=== PATIENT | male | born 1970 | race Caucasian/White ===

== ENCOUNTER 2020-09-11 21:33 | Inpatient (IN) | payer BC, OTHER ==
[~2020-09-11] VITALS: Ht 170.2 cm; Wt 90.1 kg
[~2020-09-11 21:33] MED LIST: ATEN-169 PO; CYCL-1 PO; GABA-530 PO; HYDR12.522 PO; TRAM50TA2 PO; magnesium sulf 1 GM/2 ML ONE
--- NOTE | 2020-09-11 22:08 | NUR ---
Port xray at bedside.
[2020-09-11 22:11] LABS: BASOPHILS % (AUTO) 0.3 % (0-1); EOSINOPHILS % (AUTO) 0.1 % (0-6); HEMATOCRIT 44.4 % (42.0-52.0); HEMOGLOBIN 15.2 g/dl (14.0-17.9); LYMPHOCYTES # (AUTO) 0.4 X10'3 (1.1-4.8); LYMPHOCYTES % (AUTO) 9.4 % (21-51); MEAN CORPUSCULAR HEMOGLOBIN 31.2 PG (27.0-31.0); MEAN CORPUSCULAR HGB CONC 34.3 g/dL (33.0-36.5); MONOCYTES # (AUTO) 0.5 X10'3 (0-0.9); MONOCYTES % (AUTO) 11.2 % (2-12); NEUTROPHILS # (AUTO) 3.4 X10'3 (1.8-7.7); PLATELET COUNT 234 X10'3 (140-440); RED BLOOD COUNT 4.88 X10'6 (4.70-6.10); RED CELL DISTRIBUTION WIDTH 13.4 % (11.5-14.5); WHITE BLOOD COUNT 4.3 X10'3 (4.5-11.0)
[2020-09-11 22:11] LABS: ABG BASE EXCESS -2.5 mmol/L (-2.0-2.0); ABG HCO3 20.7 mmol/L (22.0-26.0); ABG OXYGEN SATURATION 93.1 % (94-97); ABG PCO2 (T) 31.7 mmHg (35.0-48.0); ABG PO2 (T) 64.9 mmHg (75.0-100.0); ALLEN'S TEST POSITIVE; FCOHb 1.8 % (0.0-3.9); FMetHb 0.1 % (0.0-1.5); FO2Hb 91.3 % (94-97); TOTAL HEMOGLOBIN 14.5 G/dl (14.0-18.0)
[2020-09-11] MEDS ORDERED: dexamethasone sod phosphate 10mg/ml inj IV STA (22:23)
[2020-09-11] MEDS ORDERED: HYDR-3972 PO (22:55)
[2020-09-11] MEDS ORDERED: ALB0.5UD PO (22:55)
[2020-09-11] MEDS ORDERED: CYCL-394 PO (22:58)
[2020-09-11] MEDS ORDERED: magnesium hydroxide 30ml (MOM) UD suspension PO PRN (23:00)
[2020-09-11] MEDS ORDERED: HYDROcodone/acetaminophen 5mg/325mg tablet PO PRN (23:00)
[2020-09-11] MEDS ORDERED: potassium Cl 20 mEq SR tablet PO PRN ×2 (23:00)
[2020-09-11] MEDS ORDERED: ondansetron/PF 4mg/2ml inj IV PRN (23:00)
[2020-09-11] MEDS ORDERED: acetaminophen 325mg tablet PO PRN (23:00)
[2020-09-11] MEDS ORDERED: mag hydrox/Alum hydrox/simeth 30ml oral suspension PO PRN (23:00)
[2020-09-11] MEDS ORDERED: potassium CL 10mEq/100ml bag 100 ML IV PRN ×2 (23:00)
[2020-09-11 23:10] LABS: ALBUMIN 2.9 G/DL (3.4-5.0); ANION GAP 9 (8-16); BLOOD UREA NITROGEN 12 MG/DL (7-18); BUN/CREATININE RATIO 12.2 (5.4-32.0); C-REACTIVE PROTEIN 20.77 MG/DL (0.0-0.5); CALCIUM 7.8 MG/DL (8.5-10.1); CHLORIDE 102 MMOL/L (99-107); CREATININE 0.98 MG/DL (0.60-1.10); FERRITIN 460 NG/ML (26-388); GLUCOSE 157 MG/DL (70-104); LACTATE DEHYDROGENASE 463 U/L (85-227); POTASSIUM 3.6 MMOL/L (3.5-5.1); SODIUM 139 MMOL/L (135-145); TOTAL CARBON DIOXIDE 28.5 MMOL/L (24-32); TROPONIN I 0.06 NG/ML (0.0-0.05); eGFR 81 ML/MIN
[2020-09-11 23:20] LABS: ABG BASE EXCESS -0.1 mmol/L (-2.0-2.0); ABG HCO3 23.6 mmol/L (22.0-26.0); ABG OXYGEN SATURATION 91.7 % (94-97); ABG PCO2 (T) 35.2 mmHg (35.0-48.0); ABG PO2 (T) 59.9 mmHg (75.0-100.0); ALLEN'S TEST POSITIVE; FCOHb 1.4 % (0.0-3.9); FO2Hb 90.4 % (94-97); PATIENT TEMPERATURE 36.9; RESPIRATORY RATE 12 b/min
[2020-09-11] MEDS ORDERED: aspirin 81mg tab.chew PO ONE (23:20)
[2020-09-11] MEDS ORDERED: REMDESIVIR 100MG inj. 200 MG in normal saline 100ml IV soln 100 ML IV ONE (23:20)
[2020-09-11 23:41] LABS: D-DIMER 1.45 MG/L FEU (0-0.50)
[2020-09-12] VITALS (8 sets, daily range): BP systolic 105–134; BP diastolic 58–87
[2020-09-12] MEDS: cyclobenzaprine 10mg tablet PO SCH ×3 (00:22→15:22)
[2020-09-12] MEDS: normal saline 1000ml 1,000 ML IV SCH (00:22)
--- NOTE | 2020-09-12 01:07 | NUR ---
Patient in room ED 7. I have received report from Pratima VO and had the opportunity to ask questions and assume patient care.
--- NOTE | 2020-09-12 01:07 | NUR ---
pagged resp and security for pt to be transfered to floor bed 8444
[2020-09-12] MEDS ORDERED: FLO0.4C PO (03:09)
[2020-09-12] MEDS ORDERED: AZIT250T2 PO (03:09)
[2020-09-12] MEDS ORDERED: ESCI10TA61 PO (03:09)
[2020-09-12 03:34] LABS: BASOPHILS % (AUTO) 0.2 % (0-1); EOSINOPHILS % (AUTO) 0 % (0-6); HEMATOCRIT 38.7 % (42.0-52.0); HEMOGLOBIN 13.4 g/dl (14.0-17.9); LYMPHOCYTES # (AUTO) 0.3 X10'3 (1.1-4.8); LYMPHOCYTES % (AUTO) 6.3 % (21-51); MEAN CORPUSCULAR HEMOGLOBIN 31.2 PG (27.0-31.0); MEAN CORPUSCULAR HGB CONC 34.5 g/dL (33.0-36.5); MEAN CORPUSCULAR VOLUME 90.4 FL (78-98); MONOCYTES # (AUTO) 0.3 X10'3 (0-0.9); MONOCYTES % (AUTO) 8.3 % (2-12); NEUTROPHILS # (AUTO) 3.4 X10'3 (1.8-7.7); NEUTROPHILS % (AUTO) 85.2 % (42-75); PLATELET COUNT 209 X10'3 (140-440); RED BLOOD COUNT 4.28 X10'6 (4.70-6.10); RED CELL DISTRIBUTION WIDTH 13.2 % (11.5-14.5)
[2020-09-12 03:44] LABS: ALANINE AMINOTRANSFERASE 18 U/L (12-78); ALBUMIN 2.8 G/DL (3.4-5.0); ALBUMIN/GLOBULIN RATIO 0.7 (1.1-1.5); ALKALINE PHOSPHATASE 49 IU/L (46-116); ANION GAP 8 (8-16); ASPARTATE AMINO TRANSFERASE 28 U/L (10-37); BILIRUBIN,TOTAL 0.7 MG/DL (0.1-1.0); BLOOD UREA NITROGEN 13 MG/DL (7-18); BUN/CREATININE RATIO 15.3 (5.4-32.0); CALCIUM 7.9 MG/DL (8.5-10.1); CHLORIDE 103 MMOL/L (99-107); CREATININE 0.85 MG/DL (0.60-1.10); GLUCOSE 172 MG/DL (70-104); SODIUM 138 MMOL/L (135-145); TOTAL PROTEIN 6.9 G/DL (6.4-8.2); eGFR > 90 ML/MIN
[2020-09-12] MEDS ORDERED: REMDESIVIR 100MG inj. 200 MG in normal saline 100ml IV soln 100 ML IV ONE (06:00)
--- NOTE | 2020-09-12 06:14 | NUR ---
Problems reprioritized. Patient report given, questions answered & plan of care reviewed with Maite RN and live RN.
--- NOTE | 2020-09-12 06:33 | NUR ---
Patient in room PCU 3008. I have received report from Taqueria VO and had the opportunity to ask questions and assume patient care.
[2020-09-12] MEDS: dexamethasone inj 6 MG in normal saline 100ml IV soln 100 ML IV SCH (07:57)
[2020-09-12] MEDS ORDERED: heparin, porcine 5000 units/ml vial SQ SCH (08:00)
[2020-09-12] MEDS: K and/or MAG REPLACEMENT MC SCH ×2 (08:00→20:00)
[2020-09-12] MEDS: HYDROcodone/acetaminophen 10/325mg tab PO PRN ×2 (08:14→17:08)
[2020-09-12] MEDS: atenolol 50mg tablet PO SCH (08:15)
--- NOTE | 2020-09-12 09:15 | NUR ---
Per Dr. Childs, he would like patient taken off bi-pap and put on hi-flow nasal cannula. Currently 99% on 55% FiO2. Will page RT.
--- NOTE | 2020-09-12 10:45 | NUR ---
Patient O2 sat 99% on 55% FiO2. Per RT, he would like to titrate oxygen requirements down and then place patient on hi-flow nasal cannula.
--- NOTE | 2020-09-12 11:13 | NUR ---
Patient on 45% FiO2. Saturating 98%.
[2020-09-12] MEDS: CefTRIAXone 2gm/D5W 50ml BAG 50 ML IV SCH (12:11)
[2020-09-12] MEDS: gabapentin 400mg capsule PO SCH ×2 (12:11→20:29)
--- NOTE | 2020-09-12 12:30 | NUR ---
Spoke with patient's spouse, Greta regarding having patients personal computer delivered to lobby. Will pickle processor from security if family able to arrange for delivery.
--- NOTE | 2020-09-12 13:09 | NUR ---
Patient on bi-pap FiO2 35%. Oxygen saturation 92%. Respirations 24. Offers no complaints.
--- NOTE | 2020-09-12 14:00 | NUR ---
Patient on 12L high flow oxygen. Sats 94%. Respirations 24. Will continue to monitor.
[2020-09-12] MEDS ORDERED: albuterol 2.5 MG/3 ML nebule NEB PRN (15:10)
[2020-09-12] MEDS: tamsulosin 0.4mg capsule PO SCH (17:04)
--- NOTE | 2020-09-12 18:23 | NUR ---
Patient in room PCU 3008. I have received report from Maite VO and had the opportunity to ask questions and assume patient care.
[2020-09-12] MEDS: enoxaparin 40mg/0.4ml syringe SUBCUT SCH (20:29)
[2020-09-12] MEDS ORDERED: gabapentin 400mg capsule PO SCH (21:00)
[2020-09-13] MEDS: cyclobenzaprine 10mg tablet PO SCH ×3 (00:05→15:36)
[2020-09-13] MEDS: HYDROcodone/acetaminophen 10/325mg tab PO PRN ×3 (00:05→13:56)
[2020-09-13 02:00] VITALS: BP 136/75
--- NOTE | 2020-09-13 06:14 | NUR ---
Problems reprioritized. Patient report given, questions answered & plan of care reviewed with Iris VO.
--- NOTE | 2020-09-13 06:49 | NUR ---
Patient in room PCU 3008. I have received report from Taqueria VO and had the opportunity to ask questions and assume patient care.
[2020-09-13 06:53] VITALS: BP 117/72
[2020-09-13 07:21] LABS: BASOPHILS % (AUTO) 0.1 % (0-1); EOSINOPHILS % (AUTO) 0 % (0-6); HEMOGLOBIN 12.5 g/dl (14.0-17.9); LYMPHOCYTES # (AUTO) 0.5 X10'3 (1.1-4.8); LYMPHOCYTES % (AUTO) 6.4 % (21-51); MEAN CORPUSCULAR HEMOGLOBIN 31.8 PG (27.0-31.0); MEAN CORPUSCULAR HGB CONC 34.8 g/dL (33.0-36.5); MEAN CORPUSCULAR VOLUME 91.4 FL (78-98); MEAN PLATELET VOLUME 8.2 FL (7.4-10.4); MONOCYTES # (AUTO) 0.7 X10'3 (0-0.9); NEUTROPHILS # (AUTO) 7.2 X10'3 (1.8-7.7); NEUTROPHILS % (AUTO) 85.5 % (42-75); PLATELET COUNT 257 X10'3 (140-440); RED BLOOD COUNT 3.94 X10'6 (4.70-6.10); RED CELL DISTRIBUTION WIDTH 12.9 % (11.5-14.5); WHITE BLOOD COUNT 8.4 X10'3 (4.5-11.0)
[2020-09-13 07:38] LABS: D-DIMER 6.53 MG/L FEU (0-0.50)
[2020-09-13] MEDS: dexamethasone inj 6 MG in normal saline 100ml IV soln 100 ML IV SCH (07:52)
[2020-09-13] MEDS: REMDESIVIR 100MG inj. 100 MG in normal saline 100ml IV soln 100 ML IV SCH (07:56)
[2020-09-13] MEDS: gabapentin 400mg capsule PO SCH ×2 (07:56→21:09)
[2020-09-13] MEDS: CefTRIAXone 2gm/D5W 50ml BAG 50 ML IV SCH (07:57)
[2020-09-13] MEDS: enoxaparin 40mg/0.4ml syringe SUBCUT SCH ×2 (07:57→21:10)
[2020-09-13] MEDS: ESCITALOPRAM OXALATE 5 MG TABLET PO SCH (07:58)
[2020-09-13] MEDS: atenolol 50mg tablet PO SCH (07:58)
[2020-09-13] MEDS: tamsulosin 0.4mg capsule PO SCH (07:59)
[2020-09-13] MEDS: K and/or MAG REPLACEMENT MC SCH ×2 (08:00→20:00)
[2020-09-13 08:01] LABS: ALANINE AMINOTRANSFERASE 19 U/L (12-78); ALBUMIN 2.4 G/DL (3.4-5.0); ALBUMIN/GLOBULIN RATIO 0.6 (1.1-1.5); ALKALINE PHOSPHATASE 56 IU/L (46-116); ANION GAP 10 (8-16); ASPARTATE AMINO TRANSFERASE 20 U/L (10-37); BILIRUBIN,TOTAL 0.5 MG/DL (0.1-1.0); BLOOD UREA NITROGEN 20 MG/DL (7-18); BUN/CREATININE RATIO 23.3 (5.4-32.0); C-REACTIVE PROTEIN 12.54 MG/DL (0.0-0.5); CALCIUM 7.8 MG/DL (8.5-10.1); CHLORIDE 107 MMOL/L (99-107); CREATININE 0.86 MG/DL (0.60-1.10); GLUCOSE 168 MG/DL (70-104); POTASSIUM 3.8 MMOL/L (3.5-5.1); SODIUM 144 MMOL/L (135-145); TOTAL CARBON DIOXIDE 27.5 MMOL/L (24-32); TOTAL PROTEIN 6.2 G/DL (6.4-8.2); eGFR > 90 ML/MIN
[2020-09-13 11:00] VITALS: BP 134/61
[2020-09-13 15:00] VITALS: BP 107/44
[2020-09-13] MEDS: morphine 2 MG/ML inj. syringe IV PRN (15:37)
--- NOTE | 2020-09-13 16:05 | NUR ---
New order from Dr Angelo for morphine IV 0.5 mg q8h PRN for pain.
--- NOTE | 2020-09-13 17:11 | NUR ---
Pt Rashad 3008 HR has been sinus kellie 45s-55s for the past hour or so, possibly due to the morphine? He is not symptomatic, will continue to monitor. Iris Muniz Belen
[2020-09-13 18:00] VITALS: BP 125/75
--- NOTE | 2020-09-13 18:10 | NUR ---
Patient in room PCU 3008. I have received report from Iris VO and had the opportunity to ask questions and assume patient care.
--- NOTE | 2020-09-13 18:11 | NUR ---
Problems reprioritized. Patient report given, questions answered & plan of care reviewed with TAVO Gonzalez. Patient stable at transfer of care.
--- NOTE | 2020-09-13 18:42 | NUR ---
Problems reprioritized. Patient report given, questions answered & plan of care reviewed with Taqueria VO.
--- NOTE | 2020-09-13 18:43 | NUR ---
Patient in room PCU 3008. I have received report from Carlos VO and had the opportunity to ask questions and assume patient care.
[2020-09-13] MEDS: lactobacillus rhamnosus 10,000 MMU CELLS/CAPSULE PO SCH (21:10)
[2020-09-13 22:00] VITALS: BP 103/59
[2020-09-13] MEDS: normal saline 1000ml 1,000 ML IV SCH (23:38)
[2020-09-14] MEDS: cyclobenzaprine 10mg tablet PO SCH ×3 (00:14→16:27)
[2020-09-14] MEDS: HYDROcodone/acetaminophen 10/325mg tab PO PRN ×3 (00:14→19:48)
[2020-09-14 02:00] VITALS: BP 123/70
[2020-09-14 05:42] VITALS: BP 128/78
[2020-09-14 06:02] LABS: BASOPHILS % (AUTO) 0 % (0-1); EOSINOPHILS % (AUTO) 0 % (0-6); HEMATOCRIT 36.6 % (42.0-52.0); HEMOGLOBIN 12.6 g/dl (14.0-17.9); LYMPHOCYTES # (AUTO) 0.7 X10'3 (1.1-4.8); MEAN CORPUSCULAR HEMOGLOBIN 31.3 PG (27.0-31.0); MEAN CORPUSCULAR HGB CONC 34.5 g/dL (33.0-36.5); MEAN CORPUSCULAR VOLUME 90.8 FL (78-98); MEAN PLATELET VOLUME 8.2 FL (7.4-10.4); MONOCYTES % (AUTO) 9.7 % (2-12); NEUTROPHILS # (AUTO) 8.4 X10'3 (1.8-7.7); NEUTROPHILS % (AUTO) 83.3 % (42-75); PLATELET COUNT 260 X10'3 (140-440); RED BLOOD COUNT 4.03 X10'6 (4.70-6.10); RED CELL DISTRIBUTION WIDTH 12.9 % (11.5-14.5); WHITE BLOOD COUNT 10.1 X10'3 (4.5-11.0)
--- NOTE | 2020-09-14 06:10 | NUR ---
Problems reprioritized. Patient report given, questions answered & plan of care reviewed with Iris VO.
--- NOTE | 2020-09-14 06:39 | NUR ---
Patient in room PCU 3008. I have received report from Taqueria VO and had the opportunity to ask questions and assume patient care.
[2020-09-14 06:49] LABS: ALANINE AMINOTRANSFERASE 20 U/L (12-78); ALBUMIN 2.3 G/DL (3.4-5.0); ALBUMIN/GLOBULIN RATIO 0.6 (1.1-1.5); ALKALINE PHOSPHATASE 70 IU/L (46-116); ANION GAP 8 (8-16); ASPARTATE AMINO TRANSFERASE 18 U/L (10-37); BILIRUBIN,TOTAL 0.5 MG/DL (0.1-1.0); BLOOD UREA NITROGEN 23 MG/DL (7-18); BUN/CREATININE RATIO 28.8 (5.4-32.0); C-REACTIVE PROTEIN 5.21 MG/DL (0.0-0.5); CALCIUM 8.1 MG/DL (8.5-10.1); CHLORIDE 109 MMOL/L (99-107); GLUCOSE 142 MG/DL (70-104); LACTATE DEHYDROGENASE 485 U/L (85-227); POTASSIUM 3.9 MMOL/L (3.5-5.1); SODIUM 145 MMOL/L (135-145); TOTAL CARBON DIOXIDE 27.8 MMOL/L (24-32); TOTAL PROTEIN 5.9 G/DL (6.4-8.2); eGFR > 90 ML/MIN
[2020-09-14] MEDS: gabapentin 400mg capsule PO SCH ×2 (07:57→19:49)
[2020-09-14] MEDS: lactobacillus rhamnosus 10,000 MMU CELLS/CAPSULE PO SCH ×2 (07:57→19:49)
[2020-09-14] MEDS: dexamethasone inj 6 MG in normal saline 100ml IV soln 100 ML IV SCH (07:57)
[2020-09-14] MEDS: ESCITALOPRAM OXALATE 5 MG TABLET PO SCH (07:57)
[2020-09-14] MEDS: tamsulosin 0.4mg capsule PO SCH (07:57)
[2020-09-14] MEDS: atenolol 50mg tablet PO SCH (07:57)
[2020-09-14] MEDS: REMDESIVIR 100MG inj. 100 MG in normal saline 100ml IV soln 100 ML IV SCH (07:58)
[2020-09-14] MEDS: CefTRIAXone 2gm/D5W 50ml BAG 50 ML IV SCH (07:58)
[2020-09-14] MEDS: morphine 2 MG/ML inj. syringe IV PRN ×2 (08:13→16:28)
[2020-09-14] MEDS: enoxaparin 100mg/ml syringe SUBCUT SCH ×2 (08:14→19:50)
[2020-09-14] MEDS: K and/or MAG REPLACEMENT MC SCH (08:30)
[2020-09-14] MEDS ORDERED: iohexol 350MG/ML 100ml bottle IV ONE (10:18)
[2020-09-14 11:00] VITALS: BP 122/95
--- NOTE | 2020-09-14 11:30 | NUR ---
PAGER ID: [phone] MESSAGE: [phone] Kelly - Patient has a PE in the right lung per CT. Please advise. Iris [facility] [id number]
[2020-09-14 15:00] VITALS: BP_SYST 122; BP_SYST 143; BP_DIAS 64; BP_DIAS 83
--- NOTE | 2020-09-14 18:07 | NUR ---
Problems reprioritized. Patient report given, questions answered & plan of care reviewed with Amadeo RN.
--- NOTE | 2020-09-14 18:32 | NUR ---
Patient in room PCU 3008. I have received report from JAYCE VO and had the opportunity to ask questions and assume patient care.
[2020-09-14 19:00] VITALS: BP 147/81
[2020-09-14 20:00] VITALS: BP 138/69
[2020-09-15] VITALS (8 sets, daily range): BP systolic 127–155; BP diastolic 55–83
[2020-09-15] MEDS: cyclobenzaprine 10mg tablet PO SCH ×3 (00:26→15:21)
[2020-09-15] MEDS: K and/or MAG REPLACEMENT MC SCH ×3 (01:11→20:00)
[2020-09-15 03:04] LABS: BASOPHILS % (AUTO) 0.3 % (0-1); EOSINOPHILS % (AUTO) 0 % (0-6); HEMATOCRIT 38.4 % (42.0-52.0); HEMOGLOBIN 13.1 g/dl (14.0-17.9); LYMPHOCYTES # (AUTO) 0.7 X10'3 (1.1-4.8); LYMPHOCYTES % (AUTO) 7.9 % (21-51); MEAN CORPUSCULAR HGB CONC 34.1 g/dL (33.0-36.5); MEAN CORPUSCULAR VOLUME 90.8 FL (78-98); MONOCYTES # (AUTO) 0.7 X10'3 (0-0.9); MONOCYTES % (AUTO) 8.4 % (2-12); NEUTROPHILS # (AUTO) 7.2 X10'3 (1.8-7.7); NEUTROPHILS % (AUTO) 83.4 % (42-75); PLATELET COUNT 264 X10'3 (140-440); RED BLOOD COUNT 4.24 X10'6 (4.70-6.10); RED CELL DISTRIBUTION WIDTH 13.2 % (11.5-14.5); WHITE BLOOD COUNT 8.6 X10'3 (4.5-11.0)
[2020-09-15 03:24] LABS: D-DIMER 14.39 MG/L FEU (0-0.50)
[2020-09-15 03:25] LABS: ALANINE AMINOTRANSFERASE 16 U/L (12-78); ALBUMIN 2.2 G/DL (3.4-5.0); ALBUMIN/GLOBULIN RATIO 0.6 (1.1-1.5); ALKALINE PHOSPHATASE 80 IU/L (46-116); ANION GAP 6 (8-16); ASPARTATE AMINO TRANSFERASE 13 U/L (10-37); BILIRUBIN,TOTAL 0.4 MG/DL (0.1-1.0); BLOOD UREA NITROGEN 20 MG/DL (7-18); BUN/CREATININE RATIO 23.5 (5.4-32.0); C-REACTIVE PROTEIN 6.87 MG/DL (0.0-0.5); CALCIUM 7.3 MG/DL (8.5-10.1); CHLORIDE 111 MMOL/L (99-107); CREATININE 0.85 MG/DL (0.60-1.10); GLUCOSE 122 MG/DL (70-104); POTASSIUM 3.7 MMOL/L (3.5-5.1); SODIUM 145 MMOL/L (135-145); TOTAL CARBON DIOXIDE 27.6 MMOL/L (24-32); TOTAL PROTEIN 5.7 G/DL (6.4-8.2); eGFR > 90 ML/MIN
--- NOTE | 2020-09-15 06:15 | NUR ---
Problems reprioritized. Patient report given, questions answered & plan of care reviewed with NILSA VO.
--- NOTE | 2020-09-15 06:27 | NUR ---
Patient in room PCU 3008. I have received report from Amadeo VO and had the opportunity to ask questions and assume patient care.
[2020-09-15] MEDS: dexamethasone inj 6 MG in normal saline 100ml IV soln 100 ML IV SCH (08:13)
[2020-09-15] MEDS: CefTRIAXone 2gm/D5W 50ml BAG 50 ML IV SCH (08:13)
[2020-09-15] MEDS: REMDESIVIR 100MG inj. 100 MG in normal saline 100ml IV soln 100 ML IV SCH (08:13)
[2020-09-15] MEDS: lactobacillus rhamnosus 10,000 MMU CELLS/CAPSULE PO SCH ×2 (08:14→20:43)
[2020-09-15] MEDS: gabapentin 400mg capsule PO SCH ×2 (08:14→20:43)
[2020-09-15] MEDS: ESCITALOPRAM OXALATE 5 MG TABLET PO SCH (08:15)
[2020-09-15] MEDS: tamsulosin 0.4mg capsule PO SCH (08:15)
[2020-09-15] MEDS: atenolol 50mg tablet PO SCH (08:15)
[2020-09-15] MEDS: enoxaparin 100mg/ml syringe SUBCUT SCH ×3 (08:15→21:25)
[2020-09-15] MEDS: HYDROcodone/acetaminophen 10/325mg tab PO PRN ×2 (08:47→20:42)
[2020-09-15] MEDS: morphine 2 MG/ML inj. syringe IV PRN ×2 (09:28→20:43)
[2020-09-15] MEDS ORDERED: furosemide 20 MG/2 ML vial IV STA (10:04)
--- NOTE | 2020-09-15 14:12 | NUR ---
PAGER ID: [phone] MESSAGE: [phone] Rob eMndoza: DONALD I had instructed pt to keep face mask on with hi flow NC, pt saturation in 92-96% on 10L, I have informed Dr. Childs as well, received orders for Albuterol Neb q6h PRN. Thanks Alda
--- NOTE | 2020-09-15 14:13 | NUR ---
spoke to dr. aden in regards to pt's increased oxygen demand and congestion, received orders for albuterol neb q6h prn
[2020-09-15] MEDS ORDERED: albuterol 2.5 MG/3 ML nebule NEB PRN (14:15)
--- NOTE | 2020-09-15 14:18 | NUR ---
Initial: Poor PO intake 0-25%. No meeting needs. Admitted with acute respiratory failure with hypoxemia, covid-19 pna. No appetite r/t covid-19, loss of taste, and elevated CRP. On BiPAP overnight, has Nasal Cannula. Recommend sending liquid nutrition such as shakes and smoothies that are easier to consume with shortness of breath, d/w dietary. Recommend: 1. continue regular diet 2. shakes and smoothies alternating with meals 3. wt per rx Addendum: 09/15/20 at [address] Amended: Links added.
[2020-09-15] MEDS: ALBUTEROL INHALER 1 PUFF/90 MCG INHALER IH PRN (16:03)
--- NOTE | 2020-09-15 18:24 | NUR ---
Problems reprioritized. Patient report given, questions answered & plan of care reviewed with Amadeo RN.
--- NOTE | 2020-09-15 18:25 | NUR ---
Patient in room PCU 3012. I have received report from Sharon VO and had the opportunity to ask questions and assume patient care.
--- NOTE | 2020-09-15 20:26 | NUR ---
Page Sent to Dr. Muir promotional table spacer PAGER ID: [phone] MESSAGE: [phone] - Rob Mendoza 50Y/M - Pt requesting cough drops for nagging cough. Pt has moist bloody sputum. Will prompt pt to cough regularly to clear and promote flutter valve use. [phone] Amadeo VO
[2020-09-15] MEDS: DEXAMETHASONE 6 MG TABLET PO SCH (20:42)
[2020-09-15] MEDS: guaiFENesin ER 600mg tablet PO SCH (20:43)
--- NOTE | 2020-09-15 21:09 | NUR ---
Page to Dr. Muir promotional table spacer PAGER ID: [phone] MESSAGE: [id number] - Rob Lightfrank - Roverto patient w/ R lower lobe PE, when administering lovenox 100mg the safety deployed and not the full dose was administered. [phone] Amadeo VO Addendum: 09/15/20 at 2115 by Raul Carvalho RN Discussed with Dr. Muir patient condition BP 163/76 and lovenox administration. requested I administer another dose and no additional orders for patient hypertension.
[2020-09-15] MEDS: normal saline 1000ml 1,000 ML IV SCH (23:37)
[2020-09-16] MEDS: cyclobenzaprine 10mg tablet PO SCH ×4 (00:17→23:52)
[2020-09-16] MEDS: ALBUTEROL INHALER 1 PUFF/90 MCG INHALER IH PRN ×3 (02:19→17:55)
[2020-09-16 03:00] VITALS: BP 147/73
--- NOTE | 2020-09-16 03:34 | NUR ---
MDI 2 puffs given by Amadeo VO to reduce healthcare staff exposure. Education given to RN on how to administer and instruct pt. Pt tolerated well Addendum: 09/16/20 at 0336 by Dasia Tena RT Amended: Links added.
[2020-09-16 05:14] LABS: BASOPHILS % (AUTO) 0.1 % (0-1); EOSINOPHILS % (AUTO) 0 % (0-6); HEMATOCRIT 40.6 % (42.0-52.0); HEMOGLOBIN 13.7 g/dl (14.0-17.9); LYMPHOCYTES # (AUTO) 0.5 X10'3 (1.1-4.8); LYMPHOCYTES % (AUTO) 5.3 % (21-51); MEAN CORPUSCULAR HEMOGLOBIN 30.7 PG (27.0-31.0); MEAN CORPUSCULAR HGB CONC 33.9 g/dL (33.0-36.5); MEAN CORPUSCULAR VOLUME 90.7 FL (78-98); MEAN PLATELET VOLUME 8.7 FL (7.4-10.4); MONOCYTES # (AUTO) 0.4 X10'3 (0-0.9); MONOCYTES % (AUTO) 4.4 % (2-12); NEUTROPHILS # (AUTO) 8.2 X10'3 (1.8-7.7); NEUTROPHILS % (AUTO) 90.2 % (42-75); PLATELET COUNT 303 X10'3 (140-440); RED BLOOD COUNT 4.47 X10'6 (4.70-6.10); RED CELL DISTRIBUTION WIDTH 12.9 % (11.5-14.5); WHITE BLOOD COUNT 9.1 X10'3 (4.5-11.0)
[2020-09-16 05:31] LABS: ALANINE AMINOTRANSFERASE 18 U/L (12-78); ALBUMIN 2.4 G/DL (3.4-5.0); ALBUMIN/GLOBULIN RATIO 0.6 (1.1-1.5); ALKALINE PHOSPHATASE 86 IU/L (46-116); ANION GAP 10 (8-16); ASPARTATE AMINO TRANSFERASE 15 U/L (10-37); BILIRUBIN,TOTAL 0.8 MG/DL (0.1-1.0); BLOOD UREA NITROGEN 20 MG/DL (7-18); BUN/CREATININE RATIO 25.3 (5.4-32.0); C-REACTIVE PROTEIN 12.38 MG/DL (0.0-0.5); CALCIUM 8.1 MG/DL (8.5-10.1); CHLORIDE 106 MMOL/L (99-107); CREATININE 0.79 MG/DL (0.60-1.10); GLUCOSE 168 MG/DL (70-104); SODIUM 141 MMOL/L (135-145); TOTAL CARBON DIOXIDE 24.8 MMOL/L (24-32); TOTAL PROTEIN 6.4 G/DL (6.4-8.2); eGFR > 90 ML/MIN
[2020-09-16 05:34] LABS: D-DIMER 7.36 MG/L FEU (0-0.50)
[2020-09-16 06:00] VITALS: BP 143/70
--- NOTE | 2020-09-16 06:09 | NUR ---
Problems reprioritized. Patient report given, questions answered & plan of care reviewed with Sharon VO
--- NOTE | 2020-09-16 06:20 | NUR ---
Patient in room PCU 3008. I have received report from Amadeo VO and had the opportunity to ask questions and assume patient care.
[2020-09-16] MEDS: K and/or MAG REPLACEMENT MC SCH ×2 (08:00→20:00)
[2020-09-16] MEDS: HYDROcodone/acetaminophen 10/325mg tab PO PRN ×2 (08:36→20:54)
[2020-09-16] MEDS: guaiFENesin ER 600mg tablet PO SCH ×2 (08:36→20:14)
[2020-09-16] MEDS: lactobacillus rhamnosus 10,000 MMU CELLS/CAPSULE PO SCH ×2 (08:36→20:14)
[2020-09-16] MEDS: gabapentin 400mg capsule PO SCH ×2 (08:36→20:14)
[2020-09-16] MEDS: tamsulosin 0.4mg capsule PO SCH (08:36)
[2020-09-16] MEDS: ESCITALOPRAM OXALATE 5 MG TABLET PO SCH (08:37)
[2020-09-16] MEDS: DEXAMETHASONE 6 MG TABLET PO SCH ×2 (08:37→20:13)
[2020-09-16] MEDS: atenolol 50mg tablet PO SCH (08:37)
[2020-09-16] MEDS: CefTRIAXone 2gm/D5W 50ml BAG 50 ML IV SCH (08:38)
[2020-09-16] MEDS: enoxaparin 100mg/ml syringe SUBCUT SCH ×2 (08:38→20:13)
[2020-09-16] MEDS: REMDESIVIR 100MG inj. 100 MG in normal saline 100ml IV soln 100 ML IV SCH (08:50)
[2020-09-16] MEDS: morphine 2 MG/ML inj. syringe IV PRN (09:20)
--- NOTE | 2020-09-16 09:52 | NUR ---
PAGER ID: [phone] MESSAGE: [phone] Rob Mendoza: Pt is stating his sob is related to his anxiety, can we get an order for prn anxiety medication. thanks zuleima [phone]
[2020-09-16 11:00] VITALS: BP 141/48
[2020-09-16 15:00] VITALS: BP 146/75
--- NOTE | 2020-09-16 17:17 | NUR ---
Primary RN was in the room so I received the order for 0.5mg Xanax PO q8hr PRN put in per Dr. Angelo.
[2020-09-16] MEDS: ALPRAZolam 0.5mg tablet PO PRN (17:26)
[2020-09-16 18:00] VITALS: BP 147/73
--- NOTE | 2020-09-16 18:14 | NUR ---
Problems reprioritized. Patient report given, questions answered & plan of care reviewed with Eliza VO.
[2020-09-16 22:00] VITALS: BP 152/88
[2020-09-17 01:36] VITALS: BP 124/69
[2020-09-17 05:40] LABS: BASOPHILS % (AUTO) 0.1 % (0-1); EOSINOPHILS % (AUTO) 0.1 % (0-6); HEMATOCRIT 38.8 % (42.0-52.0); LYMPHOCYTES # (AUTO) 0.5 X10'3 (1.1-4.8); MEAN CORPUSCULAR HEMOGLOBIN 30.4 PG (27.0-31.0); MEAN CORPUSCULAR HGB CONC 33.5 g/dL (33.0-36.5); MEAN CORPUSCULAR VOLUME 90.8 FL (78-98); MEAN PLATELET VOLUME 8.6 FL (7.4-10.4); MONOCYTES # (AUTO) 0.8 X10'3 (0-0.9); NEUTROPHILS # (AUTO) 11.8 X10'3 (1.8-7.7); NEUTROPHILS % (AUTO) 89.8 % (42-75); PLATELET COUNT 392 X10'3 (140-440); RED BLOOD COUNT 4.27 X10'6 (4.70-6.10); RED CELL DISTRIBUTION WIDTH 13.2 % (11.5-14.5); WHITE BLOOD COUNT 13.1 X10'3 (4.5-11.0)
[2020-09-17 06:00] VITALS: BP 128/68
[2020-09-17 06:29] LABS: ALBUMIN 2.3 G/DL (3.4-5.0); ANION GAP 7 (8-16); BLOOD UREA NITROGEN 23 MG/DL (7-18); BUN/CREATININE RATIO 26.7 (5.4-32.0); C-REACTIVE PROTEIN 4.79 MG/DL (0.0-0.5); CALCIUM 8.1 MG/DL (8.5-10.1); CHLORIDE 106 MMOL/L (99-107); CREATININE 0.86 MG/DL (0.60-1.10); GLUCOSE 203 MG/DL (70-104); POTASSIUM 4.7 MMOL/L (3.5-5.1); SODIUM 139 MMOL/L (135-145); eGFR > 90 ML/MIN
--- NOTE | 2020-09-17 06:32 | NUR ---
Patient in room PCU 3008. I have received report from Eliza VO and had the opportunity to ask questions and assume patient care.
--- NOTE | 2020-09-17 06:33 | NUR ---
Problems reprioritized. Patient report given, questions answered & plan of care reviewed with TAVO Lizama.
[2020-09-17] MEDS: CefTRIAXone 2gm/D5W 50ml BAG 50 ML IV SCH (08:00)
[2020-09-17] MEDS: K and/or MAG REPLACEMENT MC SCH ×2 (08:00→20:00)
[2020-09-17] MEDS: atenolol 50mg tablet PO SCH (08:00)
[2020-09-17] MEDS: enoxaparin 100mg/ml syringe SUBCUT SCH ×2 (08:46→20:54)
[2020-09-17] MEDS: cyclobenzaprine 10mg tablet PO SCH ×2 (08:47→15:25)
[2020-09-17] MEDS: morphine 2 MG/ML inj. syringe IV PRN ×2 (08:47→17:30)
[2020-09-17] MEDS: ALPRAZolam 0.5mg tablet PO PRN ×2 (08:47→17:29)
[2020-09-17] MEDS: gabapentin 400mg capsule PO SCH ×2 (08:47→20:53)
[2020-09-17] MEDS: DEXAMETHASONE 6 MG TABLET PO SCH ×2 (08:47→20:53)
[2020-09-17] MEDS: ESCITALOPRAM OXALATE 5 MG TABLET PO SCH (08:47)
[2020-09-17] MEDS: lactobacillus rhamnosus 10,000 MMU CELLS/CAPSULE PO SCH ×2 (08:47→20:53)
[2020-09-17] MEDS: guaiFENesin ER 600mg tablet PO SCH ×2 (08:48→20:53)
[2020-09-17] MEDS: tamsulosin 0.4mg capsule PO SCH (08:48)
[2020-09-17] MEDS: ALBUTEROL INHALER 1 PUFF/90 MCG INHALER IH PRN ×2 (09:24→15:43)
[2020-09-17 11:00] VITALS: BP 116/56
[2020-09-17 15:00] VITALS: BP 129/64
[2020-09-17] MEDS: HYDROcodone/acetaminophen 10/325mg tab PO PRN (15:25)
--- NOTE | 2020-09-17 18:19 | NUR ---
Problems reprioritized. Patient report given, questions answered & plan of care reviewed with Jihan VO.
[2020-09-17 19:00] VITALS: BP 137/80
[2020-09-17 23:00] VITALS: BP 132/71
[2020-09-17] MEDS: normal saline 1000ml 1,000 ML IV SCH (23:00)
[2020-09-18] VITALS (8 sets, daily range): BP systolic 116–158; BP diastolic 63–82
[2020-09-18] MEDS: HYDROcodone/acetaminophen 10/325mg tab PO PRN (01:13)
[2020-09-18 05:54] LABS: BASOPHILS % (AUTO) 0.2 % (0-1); EOSINOPHILS % (AUTO) 0 % (0-6); HEMATOCRIT 40.5 % (42.0-52.0); HEMOGLOBIN 13.9 g/dl (14.0-17.9); LYMPHOCYTES # (AUTO) 0.4 X10'3 (1.1-4.8); LYMPHOCYTES % (AUTO) 3.4 % (21-51); MEAN CORPUSCULAR HEMOGLOBIN 31.4 PG (27.0-31.0); MEAN CORPUSCULAR HGB CONC 34.3 g/dL (33.0-36.5); MEAN CORPUSCULAR VOLUME 91.7 FL (78-98); MEAN PLATELET VOLUME 8.4 FL (7.4-10.4); MONOCYTES # (AUTO) 0.8 X10'3 (0-0.9); NEUTROPHILS # (AUTO) 11.7 X10'3 (1.8-7.7); NEUTROPHILS % (AUTO) 90.4 % (42-75); PLATELET COUNT 422 X10'3 (140-440); RED BLOOD COUNT 4.41 X10'6 (4.70-6.10); RED CELL DISTRIBUTION WIDTH 13.2 % (11.5-14.5)
[2020-09-18 06:10] LABS: ALBUMIN 2.4 G/DL (3.4-5.0); ANION GAP 4 (8-16); BLOOD UREA NITROGEN 22 MG/DL (7-18); BUN/CREATININE RATIO 26.2 (5.4-32.0); C-REACTIVE PROTEIN 2.97 MG/DL (0.0-0.5); CALCIUM 8.3 MG/DL (8.5-10.1); CHLORIDE 106 MMOL/L (99-107); CREATININE 0.84 MG/DL (0.60-1.10); GLUCOSE 203 MG/DL (70-104); POTASSIUM 4.7 MMOL/L (3.5-5.1); SODIUM 138 MMOL/L (135-145); eGFR > 90 ML/MIN
--- NOTE | 2020-09-18 06:29 | NUR ---
Patient in room PCU 3008. I have received report from Jihan VO and had the opportunity to ask questions and assume patient care.
[2020-09-18 07:21] LABS: TOTAL CELLS COUNTED 100
[2020-09-18 07:22] LABS: HYPERSEGMENTED NEUTROPHILS 1+; PLATELET ESTIMATE NORMAL; TOXIC VACUOLATION FEW
[2020-09-18] MEDS: K and/or MAG REPLACEMENT MC SCH ×2 (08:00→20:00)
[2020-09-18] MEDS: guaiFENesin ER 600mg tablet PO SCH ×2 (08:00→20:41)
[2020-09-18] MEDS: CefTRIAXone 2gm/D5W 50ml BAG 50 ML IV SCH (09:02)
[2020-09-18] MEDS: ESCITALOPRAM OXALATE 5 MG TABLET PO SCH (09:03)
[2020-09-18] MEDS: tamsulosin 0.4mg capsule PO SCH (09:03)
[2020-09-18] MEDS: lactobacillus rhamnosus 10,000 MMU CELLS/CAPSULE PO SCH ×2 (09:03→20:41)
[2020-09-18] MEDS: gabapentin 400mg capsule PO SCH ×2 (09:03→20:41)
[2020-09-18] MEDS: cyclobenzaprine 10mg tablet PO SCH ×3 (09:04→15:55)
[2020-09-18] MEDS: atenolol 50mg tablet PO SCH (09:04)
[2020-09-18] MEDS: enoxaparin 100mg/ml syringe SUBCUT SCH ×2 (09:04→20:42)
[2020-09-18] MEDS: DEXAMETHASONE 6 MG TABLET PO SCH ×2 (09:04→20:41)
[2020-09-18] MEDS: morphine 2 MG/ML inj. syringe IV PRN (10:03)
--- NOTE | 2020-09-18 14:50 | NUR ---
Reassessment: Pt PO improved to 75-100% past 1.5 days up from 0-25% initial 4 days this admit. AUREA recommended ensure high protein TIDWM for additional protein/kcals given fluctuating PO hx; notified. LBM 09/16. Will continue to monitor. Recommend: 1. continue regular diet; encourage PO 2. ensure high protein TIDWM 3. shakes and smoothies alternating with meals 4. wt per rx Addendum: 09/18/20 at [address] Amended: Links added.
[2020-09-18] MEDS: ALPRAZolam 0.5mg tablet PO PRN (15:54)
[2020-09-18] MEDS: lactose-reduced food (Ensure High Protein) 237ml bottle PO SCH (18:00)
--- NOTE | 2020-09-18 18:15 | NUR ---
Problems reprioritized. Patient report given, questions answered & plan of care reviewed with Jihan VO.
[2020-09-19] VITALS (13 sets, daily range): BP systolic 101–147; BP diastolic 54–93
[2020-09-19] MEDS: ALBUTEROL INHALER 1 PUFF/90 MCG INHALER IH PRN (02:50)
--- NOTE | 2020-09-19 06:22 | NUR ---
Patient in room PCU 3008. I have received report from Jihan VO and had the opportunity to ask questions and assume patient care.
[2020-09-19 06:50] LABS: BASOPHILS # (AUTO) 0.1 X10'3 (0-0.2); BASOPHILS % (AUTO) 0.4 % (0-1); EOSINOPHILS % (AUTO) 0.1 % (0-6); HEMOGLOBIN 14.7 g/dl (14.0-17.9); LYMPHOCYTES # (AUTO) 0.6 X10'3 (1.1-4.8); LYMPHOCYTES % (AUTO) 4.3 % (21-51); MEAN CORPUSCULAR HEMOGLOBIN 30.3 PG (27.0-31.0); MEAN CORPUSCULAR HGB CONC 33.3 g/dL (33.0-36.5); MEAN CORPUSCULAR VOLUME 91.1 FL (78-98); MEAN PLATELET VOLUME 8.3 FL (7.4-10.4); MONOCYTES # (AUTO) 0.8 X10'3 (0-0.9); MONOCYTES % (AUTO) 5.2 % (2-12); NEUTROPHILS # (AUTO) 13.4 X10'3 (1.8-7.7); PLATELET COUNT 501 X10'3 (140-440); RED BLOOD COUNT 4.84 X10'6 (4.70-6.10); RED CELL DISTRIBUTION WIDTH 13.5 % (11.5-14.5); WHITE BLOOD COUNT 14.9 X10'3 (4.5-11.0)
[2020-09-19 07:07] LABS: ANION GAP 7 (8-16); BLOOD UREA NITROGEN 16 MG/DL (7-18); BUN/CREATININE RATIO 19.8 (5.4-32.0); C-REACTIVE PROTEIN 2.88 MG/DL (0.0-0.5); CALCIUM 8.5 MG/DL (8.5-10.1); CHLORIDE 103 MMOL/L (99-107); CREATININE 0.81 MG/DL (0.60-1.10); GLUCOSE 203 MG/DL (70-104); POTASSIUM 4.4 MMOL/L (3.5-5.1); SODIUM 137 MMOL/L (135-145); TOTAL CARBON DIOXIDE 26.8 MMOL/L (24-32); eGFR > 90 ML/MIN
--- NOTE | 2020-09-19 07:09 | NUR ---
Page Sent promotional table spacer PAGER ID: [phone] MESSAGE: [phone] Kelly.. FYI patient now on bipap at 100% Fio2. O2 remains at 92% after switching out bipap masks because of a small hole in themask. He was 85 % for more than 10 minutes. I don't see this being a good day for him. Vonda [phone]
[2020-09-19 07:18] LABS: ALBUMIN 2.5 G/DL (3.4-5.0)
[2020-09-19 07:45] LABS: TOTAL CELLS COUNTED 100
[2020-09-19 07:46] LABS: TOXIC VACUOLATION FEW
[2020-09-19 07:48] LABS: PLATELET ESTIMATE INCREASED
[2020-09-19] MEDS: lactose-reduced food (Ensure High Protein) 237ml bottle PO SCH ×2 (08:00→13:00)
[2020-09-19] MEDS: K and/or MAG REPLACEMENT MC SCH (08:00)
[2020-09-19 08:01] LABS: ABG BASE EXCESS 2.3 mmol/L (-2.0-2.0); ABG HCO3 27.1 mmol/L (22.0-26.0); ABG OXYGEN SATURATION 94.2 % (94-97); ABG PCO2 (T) 42.9 mmHg (35.0-48.0); ALLEN'S TEST POSITIVE; FCOHb 0.5 % (0.0-3.9); FMetHb 0.2 % (0.0-1.5); FO2Hb 93.5 % (94-97); RESPIRATORY RATE 12 b/min; TOTAL HEMOGLOBIN 14.8 G/dl (14.0-18.0)
[2020-09-19] MEDS: lactobacillus rhamnosus 10,000 MMU CELLS/CAPSULE PO SCH (08:35)
[2020-09-19] MEDS: gabapentin 400mg capsule PO SCH ×2 (08:36→19:25)
[2020-09-19] MEDS: atenolol 50mg tablet PO SCH (08:36)
[2020-09-19] MEDS: enoxaparin 100mg/ml syringe SUBCUT SCH ×2 (08:36→19:24)
[2020-09-19] MEDS: ESCITALOPRAM OXALATE 5 MG TABLET PO SCH (08:37)
[2020-09-19] MEDS: DEXAMETHASONE 6 MG TABLET PO SCH ×2 (08:37→19:25)
[2020-09-19] MEDS: guaiFENesin ER 600mg tablet PO SCH (08:37)
[2020-09-19] MEDS: HYDROcodone/acetaminophen 10/325mg tab PO PRN ×2 (08:37→19:24)
[2020-09-19] MEDS: cyclobenzaprine 10mg tablet PO SCH ×2 (08:37)
[2020-09-19] MEDS: tamsulosin 0.4mg capsule PO SCH (08:37)
[2020-09-19] MEDS: ALPRAZolam 0.5mg tablet PO PRN ×2 (10:50→19:25)
[2020-09-19] MEDS ORDERED: furosemide 20 MG/2 ML vial IV ONE (11:35)
--- NOTE | 2020-09-19 12:18 | NUR ---
Page Sent promotional table spacer PAGER ID: [phone] MESSAGE: [phone] Kelly Hernandes - [phone]. Vonda [phone]
--- NOTE | 2020-09-19 17:23 | NUR ---
received from pcu, in no distress, placed on monitor bipap at 80% vss. call light and personal cellphone in reach
[2020-09-20] VITALS (21 sets, daily range): BP systolic 94–156; BP diastolic 49–87
[2020-09-20] MEDS: HYDROcodone/acetaminophen 10/325mg tab PO PRN ×2 (00:24→04:41)
[2020-09-20] MEDS: LORazepam 2 mg/ml vial IV PRN ×4 (00:24→23:39)
--- NOTE | 2020-09-20 00:36 | NUR ---
just spoke with patient and explained there will be no more sitting at side of bed to urinate , as patients HR dropped to 37 bpm. Spo2 was at 86% WOB increased...and patients Hr rebounded to 70s once back in bed. Paged RT to discuss patient options. spoke with patient regarding possible need for intubation. Patient agreed that if necessary it would be ok with him to intubate for his safety. Ativan and norco given to calm patient as respitory rate in the 30s.
[2020-09-20 05:12] LABS: BASOPHILS # (AUTO) 0.1 X10'3 (0-0.2); BASOPHILS % (AUTO) 0.8 % (0-1); EOSINOPHILS % (AUTO) 0.1 % (0-6); HEMATOCRIT 41.2 % (42.0-52.0); HEMOGLOBIN 13.9 g/dl (14.0-17.9); LYMPHOCYTES # (AUTO) 0.5 X10'3 (1.1-4.8); LYMPHOCYTES % (AUTO) 3.2 % (21-51); MEAN CORPUSCULAR HEMOGLOBIN 30.5 PG (27.0-31.0); MEAN CORPUSCULAR HGB CONC 33.8 g/dL (33.0-36.5); MEAN CORPUSCULAR VOLUME 90.2 FL (78-98); MEAN PLATELET VOLUME 8.1 FL (7.4-10.4); MONOCYTES # (AUTO) 0.8 X10'3 (0-0.9); MONOCYTES % (AUTO) 5.8 % (2-12); NEUTROPHILS # (AUTO) 13.2 X10'3 (1.8-7.7); NEUTROPHILS % (AUTO) 90.1 % (42-75); PLATELET COUNT 442 X10'3 (140-440); RED BLOOD COUNT 4.57 X10'6 (4.70-6.10); RED CELL DISTRIBUTION WIDTH 13.6 % (11.5-14.5); WHITE BLOOD COUNT 14.7 X10'3 (4.5-11.0)
[2020-09-20 05:17] LABS: ALBUMIN 2.3 G/DL (3.4-5.0); ANION GAP 4 (8-16); BLOOD UREA NITROGEN 25 MG/DL (7-18); BUN/CREATININE RATIO 30.9 (5.4-32.0); C-REACTIVE PROTEIN 11.56 MG/DL (0.0-0.5); CALCIUM 8.3 MG/DL (8.5-10.1); CHLORIDE 102 MMOL/L (99-107); CREATININE 0.81 MG/DL (0.60-1.10); GLUCOSE 232 MG/DL (70-104); POTASSIUM 4.6 MMOL/L (3.5-5.1); SODIUM 136 MMOL/L (135-145); TOTAL CARBON DIOXIDE 29.6 MMOL/L (24-32); eGFR > 90 ML/MIN
[2020-09-20] MEDS ORDERED: LIDOcaine 2% 10ml TOPICAL JELLY (Urojet) TP ONE (06:05)
--- NOTE | 2020-09-20 06:45 | NUR ---
Patient assessed and states he still has a little pleuritic chest pain throughout the upper chest, bipap on with settings of 15/8, 100% fiO2. O2 sats are 92-93%. Afebrile. Asking for specialty coffee, would like to have delivered. Updated patient on plan of care. Vss, heart rate noted in 50's this morning, sinus rhythm.
[2020-09-20] MEDS: lactose-reduced food (Ensure High Protein) 237ml bottle PO SCH ×4 (06:54→18:00)
[2020-09-20] MEDS: K and/or MAG REPLACEMENT MC SCH ×2 (06:55→20:00)
[2020-09-20] MEDS: methylPREDNISolone sod succ 125mg/2ml vial IV SCH ×2 (07:51→19:20)
[2020-09-20] MEDS: gabapentin 400mg capsule PO SCH ×2 (07:52→20:00)
[2020-09-20] MEDS: enoxaparin 100mg/ml syringe SUBCUT SCH ×2 (07:52→19:21)
[2020-09-20] MEDS: ESCITALOPRAM OXALATE 5 MG TABLET PO SCH (07:52)
[2020-09-20] MEDS: ALPRAZolam 0.5mg tablet PO PRN (07:53)
[2020-09-20] MEDS: tamsulosin 0.4mg capsule PO SCH (07:53)
[2020-09-20] MEDS: atenolol 50mg tablet PO SCH (08:00)
--- NOTE | 2020-09-20 08:44 | NUR ---
Patient desats too low, 68-80% and becomes bradycardic while trying to eat. Takes some time to recover. Tray taken, discussed will need to provide another means of nutrition instead. Also risk for aspiration while eating with bipap intermittently. Will discuss with rounding md for further orders.
--- NOTE | 2020-09-20 11:01 | NUR ---
Patient made npo. PICC RN placing line at this time, nutrition consult made for tpn. Patient encouraged to lay on sides and prone himself when able for oxygenation and he agreed.
--- NOTE | 2020-09-20 12:02 | NUR ---
[facility] LINE INFORMATION: REF: [id number] LOT: [id number] EXP: 07/27/2021
--- NOTE | 2020-09-20 12:04 | NUR ---
TPN consult: Pt PO intake down to 0-25% x 4 most recent meals. Pt desats when BiPAP is taken off, becomes bradycardic while trying to eat, and is at risk for aspiration while eating with the BiPAP intermittently per RN notes. At critical care rounds RN discussed Corpak or NG tube placement rather than TPN for nutrition however MD would like to continue with TPN given high likelihood of difficulty placing an NG tube with BiPAP use. TPN recommendations below have been d/w clinical pharmacist. Recommendations were calculated using IBW as current documented weight isn't scaled. Patient's diet has been changed to NPO and PICC nurse in to place PICC around 1100 per RN notes. Will continue to follow closely. Recommendations: 1) Continuous 3:1 Clinimix-E 03/16 with 100 mL 20% intralipids with goal rate of 90 mL/hr. To begin at 30 mL and advance to goal after 12 hours if pt tolerating. Once at goal to provide: 2160 mL total volume, 2015 kcal, 103 g AA, 411 g dextrose (2.79 mg/kg/min), 20.6 g lipids (10% kcal) 2) Prealbumin and TG q Saturday/ 3) Daily weights 4) Advance diet to regular as medically indicated, would benefit from BSS with ST 5) Monitor need for ONS with PO diet advancement 6) Routine bowel care Addendum: 09/20/20 at [address] Amended: Links added.
[2020-09-20] MEDS ORDERED: Dextrose 10%-water IV solution 1,000 ML IV PRN (14:10)
[2020-09-20] MEDS: morphine 2 MG/ML inj. syringe IV PRN ×2 (18:51→22:42)
[2020-09-20] MEDS ORDERED: fat emulsion 20% IV 100 ML, MVI, adult No.4 with vit. K 10 ML, Trace element-5 inj. 1 M... IV SCH ×4 (19:00)
--- NOTE | 2020-09-20 20:23 | NUR ---
notified LEONARDA Hammond of increased WOB...ABG to determine status at this time. Spo2 86% RR 40's
[2020-09-20 20:41] LABS: ABG BASE EXCESS 5.2 mmol/L (-2.0-2.0); ABG HCO3 27.6 mmol/L (22.0-26.0); ABG OXYGEN SATURATION 91.1 % (94-97); ABG PCO2 (T) 35.7 mmHg (35.0-48.0); ABG PO2 (T) 58.3 mmHg (75.0-100.0); ALLEN'S TEST POSITIVE; FCOHb 0.5 % (0.0-3.9); FMetHb 0.1 % (0.0-1.5); FO2Hb 90.6 % (94-97); PATIENT TEMPERATURE 38.4; RESPIRATORY RATE 12 b/min; TOTAL HEMOGLOBIN 15.1 G/dl (14.0-18.0)
[2020-09-21] VITALS (12 sets, daily range): BP systolic 109–160; BP diastolic 65–83
[2020-09-21] MEDS: morphine 2 MG/ML inj. syringe IV PRN (01:12)
[2020-09-21] MEDS: LORazepam 2 mg/ml vial IV PRN ×2 (01:13→07:28)
[2020-09-21] MEDS ORDERED: glucagon, human recombinant 1mg kit SUBCUT PRN (02:50)
[2020-09-21] MEDS ORDERED: dextrose ORAL solution 15 GM/59 ML bottle PO PRN ×2 (02:50)
[2020-09-21] MEDS ORDERED: insulin Lispro (HumaLOG) vial - multi-dose SQ SCH (02:50)
[2020-09-21] MEDS ORDERED: dextrose 50%-water 50ml dispensing syringe IV PRN ×2 (02:50)
[2020-09-21] MEDS ORDERED: MESSAGE TO PHARMACY PO ONE (02:50)
[2020-09-21 03:01] LABS: BASOPHILS # (AUTO) 0.1 X10'3 (0-0.2); BASOPHILS % (AUTO) 0.5 % (0-1); EOSINOPHILS % (AUTO) 0 % (0-6); HEMATOCRIT 40.3 % (42.0-52.0); HEMOGLOBIN 13.6 g/dl (14.0-17.9); LYMPHOCYTES # (AUTO) 0.3 X10'3 (1.1-4.8); MEAN CORPUSCULAR HGB CONC 33.9 g/dL (33.0-36.5); MEAN CORPUSCULAR VOLUME 91.6 FL (78-98); MEAN PLATELET VOLUME 8.3 FL (7.4-10.4); MONOCYTES # (AUTO) 0.7 X10'3 (0-0.9); MONOCYTES % (AUTO) 4.4 % (2-12); NEUTROPHILS # (AUTO) 15.9 X10'3 (1.8-7.7); NEUTROPHILS % (AUTO) 93.1 % (42-75); PLATELET COUNT 457 X10'3 (140-440); RED CELL DISTRIBUTION WIDTH 13.3 % (11.5-14.5); WHITE BLOOD COUNT 17.1 X10'3 (4.5-11.0)
[2020-09-21 03:14] LABS: ALANINE AMINOTRANSFERASE 21 U/L (12-78); ALBUMIN 2.1 G/DL (3.4-5.0); ALBUMIN/GLOBULIN RATIO 0.5 (1.1-1.5); ALKALINE PHOSPHATASE 68 IU/L (46-116); ANION GAP 4 (8-16); ASPARTATE AMINO TRANSFERASE 13 U/L (10-37); BILIRUBIN,TOTAL 0.9 MG/DL (0.1-1.0); BLOOD UREA NITROGEN 24 MG/DL (7-18); BUN/CREATININE RATIO 27.6 (5.4-32.0); C-REACTIVE PROTEIN 15.48 MG/DL (0.0-0.5); CALCIUM 8.5 MG/DL (8.5-10.1); CHLORIDE 106 MMOL/L (99-107); CREATININE 0.87 MG/DL (0.60-1.10); GLUCOSE 328 MG/DL (70-104); MAGNESIUM 2.4 MG/DL (1.5-2.4); PHOSPHORUS 3.3 MG/DL (2.3-4.5); POTASSIUM 4.8 MMOL/L (3.5-5.1); PREALBUMIN 15.6 MG/DL (19-36); SODIUM 139 MMOL/L (135-145); TOTAL CARBON DIOXIDE 28.7 MMOL/L (24-32); TOTAL PROTEIN 6.6 G/DL (6.4-8.2); TRIGLYCERIDES 114 MG/DL (20-135); eGFR > 90 ML/MIN
[2020-09-21 03:17] LABS: HEMOGLOBIN A1C 6.4 % (4.5-6.2)
[2020-09-21] MEDS: enoxaparin 100mg/ml syringe SUBCUT SCH (07:27)
[2020-09-21] MEDS: methylPREDNISolone sod succ 125mg/2ml vial IV SCH (07:27)
[2020-09-21] MEDS ORDERED: insulin regular, human U-100 3ml vial - multi-dose SQ SCH (07:35)
[2020-09-21] MEDS: tamsulosin 0.4mg capsule PO SCH (07:54)
[2020-09-21] MEDS: gabapentin 400mg capsule PO SCH (07:54)
[2020-09-21] MEDS: ESCITALOPRAM OXALATE 5 MG TABLET PO SCH (07:54)
[2020-09-21] MEDS: lactose-reduced food (Ensure High Protein) 237ml bottle PO SCH (07:54)
[2020-09-21] MEDS ORDERED: etomidate 2mg/ml inj. ONE (08:00)
[2020-09-21] MEDS: atenolol 50mg tablet PO SCH (08:00)
[2020-09-21] MEDS ORDERED: sod chloride 0.9% 10ml flush syringe IV ONE (08:00)
[2020-09-21] MEDS ORDERED: rocuronium 10mg/ml inj IV ONE (08:00)
[2020-09-21] MEDS ORDERED: succinylcholine 20mg/ml inj IV ONE (08:00)
[2020-09-21] MEDS: K and/or MAG REPLACEMENT MC SCH (08:00)
[2020-09-21] MEDS ORDERED: midazolam 100mg in NS 100ml 100 ML IV PRN (08:40)
[2020-09-21] MEDS ORDERED: FENTANYL-0.9 % NACL/PF 100 ML IV PRN (08:40)
[2020-09-21] MEDS ORDERED: NORepinephrine 8mg/ 250ml NS 250 ML IV ONE (08:58)
[2020-09-21] MEDS ORDERED: midazolam 2 mg/2 ml injection ONE (08:59)
[2020-09-21 09:26] LABS: ABG BASE EXCESS -3.5 mmol/L (-2.0-2.0); ABG HCO3 24.9 mmol/L (22.0-26.0); ABG OXYGEN SATURATION 78.2 % (94-97); ABG PCO2 (T) 58.4 mmHg (35.0-48.0); ABG PO2 (T) 49.3 mmHg (75.0-100.0); ALLEN'S TEST POSITIVE; FCOHb 0.5 % (0.0-3.9); FMetHb 0.2 % (0.0-1.5); FO2Hb 77.7 % (94-97); PEEP 10 cm H2O; RESPIRATORY RATE 20 b/min; TIDAL VOLUME 400 mL; TOTAL HEMOGLOBIN 15.5 G/dl (14.0-18.0)
[2020-09-21 10:24] LABS: D-DIMER 1.75 MG/L FEU (0-0.50)
[2020-09-21] MEDS ORDERED: CISatracurium besylate inj. 100 MG in normal saline 100ml IV soln 90 ML IV PRN (10:25)
[2020-09-21] MEDS ORDERED: cefepime 2g/NS 100ml ADVANTAGE 100 ML IV SCH (11:30)
--- NOTE | 2020-09-21 12:33 | NUR ---
Pt unable to maintain sats all morning on 100% Fio2 on bipap. Sats in 70s/80s for several hours. Pt extremely anxious, wont keep bipap on, moving around in bed, pulling lines, sitting up on side of bed. RN in room with pt all morning. Dr. Hall called @ 0845, pt agreed to intubation at 0900. Pt given 40 etomidate and 100 of rocuronium and intubated with size 8 tube without difficulty. Pt started on fentanyl and versed and given repetitive boluses since HR and BP were extremely elevated, SBP ranging 200-240 and would not drop. Pt on 100% Fio2. Peep increased from 5 to 12 to 15 and eventually to 20 since pt's sats remained in 70s. Pt paralyzed with nimbex. called and at bedside. Very understanding of pt's condition and thankful to staff. Explained to that pt was on max settings on the ventilator and sedated and paralyzed to rest his lungs as much as possible. Pt's sats never reached above 82%. Pt began to get bradycardic. Code status discussed with who agreed on no compressions, no defib. Rafael notified of pt's bradycardia with HR in 50s, 40s, 30s. With Rafael at bedside, pt given a total of epi x3, bicarb x2, CaCl, x1, 2 mg mag x2, atropine x1. Pt went asystolic and then into vfib without ever going back into sinus rhythm. Time of 1145. took all pt's belongings.
[2020-09-21] MEDS ORDERED: methylPREDNISolone sod succ 125mg/2ml vial IV SCH (14:00)
[2020-09-21] MEDS ORDERED: fat emulsion 20% IV 100 ML, MVI, adult No.4 with vit. K 10 ML, Trace element-5 inj. 1 M... IV SCH ×4 (20:00)
[2020-09-21] MEDS ORDERED: insulin glargine (Lantus) pen - multi-dose SQ SCH (21:00)
[2020-09-22] MEDS ORDERED: VANCOmycin 1250MG/NS 250ml Bag 250 ML IV SCH
[2020-09-22] MEDS ORDERED: VANCOMYCIN LEVEL IV ONE (23:30)
== END 2020-09-21 14:55 | disposition expired | DRG 208 ==
LOC: ER 21:34 → ED HOLD 22:59 → PCU 3S 09-12 01:30 → CICU 2S 09-19 17:08
PROVIDERS: ADMIT Internal Medicine; ATTEND Internal Medicine
PROC: 5A09357 Assistance with Respiratory Ventilation, Less than 24 Consecutive Hours, Continuous Positive Airway Pressure (ICD-10-PCS; principal; 2020-09-12)
PROC: 5A09357 Assistance with Respiratory Ventilation, Less than 24 Consecutive Hours, Continuous Positive Airway Pressure (ICD-10-PCS; 2020-09-15)
PROC: 5A09357 Assistance with Respiratory Ventilation, Less than 24 Consecutive Hours, Continuous Positive Airway Pressure (ICD-10-PCS; 2020-09-19)
PROC: 5A09357 Assistance with Respiratory Ventilation, Less than 24 Consecutive Hours, Continuous Positive Airway Pressure (ICD-10-PCS; 2020-09-20)
PROC: 05HY33Z Insertion of Infusion Device into Upper Vein, Percutaneous Approach (ICD-10-PCS; 2020-09-20)
PROC: 5A1935Z Respiratory Ventilation, Less than 24 Consecutive Hours (ICD-10-PCS; 2020-09-21)
PROC: 5A09357 Assistance with Respiratory Ventilation, Less than 24 Consecutive Hours, Continuous Positive Airway Pressure (ICD-10-PCS; 2020-09-21)
PROC: 0BH17EZ Insertion of Endotracheal Airway into Trachea, Via Natural or Artificial Opening (ICD-10-PCS; 2020-09-21)
DX: U07.1 COVID-19 (principal); I26.99 Other pulmonary embolism without acute cor pulmonale; J96.01 Acute respiratory failure with hypoxia; J12.89 Other viral pneumonia; G62.9 Polyneuropathy, unspecified; G89.29 Other chronic pain; I10 Essential (primary) hypertension; I46.9 Cardiac arrest, cause unspecified; I49.01 Ventricular fibrillation; R00.0 Tachycardia, unspecified; Z79.899 Other long term (current) drug therapy
CPT/HCPCS: 36415; 36573; 36600; 71045; 71275; 76937; 80048; 80053; 82728; 82803; 82948; 83036; 83605; 83615; 83735; 84100; 84134; 84145; 84478; 84484; 85007; 85018; 85025; 85379; 85384; 85610; 86140; 87040; 87081; 87635; 93005; 94002; 94640; 94660; 94760; 94799; 99285; C9803; G0378; J0330; J0696; J1100; J1644; J1650; J1815; J1940; J2060; J2250; J2270; J2405; J2930; J3010; J3475; J7030; J8540; Q9967